=== PATIENT | female | born 1945 | race Caucasian/White ===

== ENCOUNTER → 2017-03-11 | Outpatient (CLI) | payer MEDICARE ==
[~2017-03-11] MED LIST: ACET500C PO; CALC600T7 PO; COLA100C5 PO; DIOV80TA2 PO; ECOT81TA5 PO; FOLI1TAB4 PO; HYDR-3713 PO; LIPI10TA PO; LUTE20CA PO; METO50TA7 PO; MOBI15TA PO; PRED5CON PO; PRIL20CA9 PO; TRAM50TA2 PO; TYLE325T5 PO; [UNRECOGNIZED DRUG - CODE] SL
[2017-03-11 17:50] LABS: BASO % 0.4 % (0.0-1.0); EOS % 0.5 % (0.0-3.0); IMMATURE GRANULOCYTE % 0.4 % (0-0); LYMPH # 0.8 10^3/uL (1.5-4.5); LYMPH % 10.5 % (24.0-44.0); MEAN CORPUSCULAR VOLUME 93.7 fl (80.0-96.0); MONO # 0.8 10^3/uL (0.0-0.8); NEUTROPHILS # 5.9 10^3/uL (1.8-7.7); NEUTROPHILS % 77.2 % (36.0-66.0); PLATELET COUNT, AUTOMATED 333 10^3/uL (150-450); RED CELL DISTRIBUTION WIDTH 14.7 % (11.5-14.5); WHITE BLOOD COUNT 7.6 10^3/uL (4.0-10.0)
[2017-03-11 17:52] LABS: ADD MORPHOLOGY? NO
[2017-03-11 18:08] LABS: ANION GAP 6 MEQ/L (8-16); BLOOD UREA NITROGEN 19 MG/DL (7-18); CALCIUM LEVEL 9.3 MG/DL (8.8-10.2); CARBON DIOXIDE LEVEL 29 MEQ/L (21-32); CHLORIDE LEVEL 104 MEQ/L (98-107); CREATININE FOR GFR 0.95 MG/DL (0.55-1.02); GLOMERULAR FILTRATION RATE > 60.0 (>39); GLUCOSE, FASTING 106 MG/DL (83-110); POTASSIUM SERUM 4.4 MEQ/L (3.5-5.1); SODIUM LEVEL 139 MEQ/L (136-145)
== END ==
LOC: M WUC 16:35
PROVIDERS: ATTEND Internal Medicine Cardiovascular Disease
DX: E78.5 Hyperlipidemia, unspecified (principal); I10 Essential (primary) hypertension; I35.8 Other nonrheumatic aortic valve disorders

== ENCOUNTER → 2017-04-28 | Outpatient (REF) | payer MEDICARE ==
[2017-04-28 16:38] LABS: EOSINOPHILS 1 % (0-5)
== END ==
LOC: M LAB REF 15:24
PROVIDERS: ATTEND Internal Medicine
DX: I47.1 Supraventricular tachycardia (principal); M06.9 Rheumatoid arthritis, unspecified; Z79.899 Other long term (current) drug therapy

== ENCOUNTER → 2017-05-20 | Outpatient (CLI) | payer MEDICARE ==
--- NOTE | 2017-05-20 10:21 | REPMRS ---
Patient History The patient states she had a clinical breast exam in 05/01 Patient is postmenopausal. Family history of breast cancer in paternal aunt at age 50 or over. 4 benign excisional biopsies of both breasts. Digital Woman Screen Mammo: May 20, 2017 - Exam #: [id number] Bilateral CC and MLO view(s) were taken. Technologist: Jeannie Burgess, Technologist Prior study comparison: 2009, digital bilateral screening mammo performed at [facility]. FINDINGS: There are scattered fibroglandular densities. There has been no change in the appearance of the mammogram from the prior studies. There is a mild amount of residual fibroglandular tissue which is fairly symmetric. There is no interval development of dominant mass, architectural distortion, or clustered microcalcification suggestive of malignancy. Coarsely calcified nodules, one in each breast as benign finding. The numerous bilateral nodules on prior study are all resolved or smaller. There are benign arterial calcifications noted. Scattered lymph nodes are seen in the axilla. No significant changes when compared with prior studies. ASSESSMENT: BI-RADS/ACR category 2 mammogram. Benign finding(s). Recommendation Routine screening mammogram in 1 year (for women over age 40). This mammogram was interpreted with the aid of an FDA-approved computer-aided dectection system. A. Negative x-ray reports should not delay biopsy if a dominant or clinically suspicious mass is present. B. Four to eight percent of cancers are not identified by mammography. C. Adenosis and dense breast may obscure an underlying neoplasm. Electronically Signed By: Reyes Lutz MD 05/20/17 [id number]
== END ==
LOC: M WHC 09:35
PROVIDERS: ATTEND Internal Medicine
DX: Z12.31 Encounter for screening mammogram for malignant neoplasm of breast (principal)

== ENCOUNTER 2017-11-08 18:50 | Emergency (ER) | payer MEDICARE ==
[2017-11-08] MEDS ORDERED: ASPIRIN 81 MG CHEW TABLET As Ordered ×2 (19:19)
[2017-11-08] MEDS ORDERED: NITROGLYCERIN 0.4 MG SUBL TABLET As Ordered ×2 (19:19)
[2017-11-08] MEDS ORDERED: ISOVUE-370 76% 100ML VIAL (Q9967) As Ordered ×2 (19:23)
[2017-11-08 19:52] LABS: CPK CREATINE PHOSPHOKINASE 142 U/L (26-192)
[2017-11-08 19:53] LABS: CK-MB VALUE MASS 8.8 NG/ML (<3.6); MB/CK RELATIVE INDEX 6.19 (< OR =4)
[2017-11-08 20:13] LABS: INR 0.96; PROTHROMBIN TIME 12.9 SECONDS (12.4-14.5)
[2017-11-08 20:14] LABS: PARTIAL THROMBOPLASTIN TIME 33.7 SECONDS (26.8-37.9)
[2017-11-08 20:15] LABS: TROPONIN I 4.56 NG/ML (< 0.10)
[2017-11-08] MEDS: HEPARIN DRIP 25,000 UNITS in APPROPRIATE DILUENT 1 EA IV (20:45)
[2017-11-08] MEDS: HEPARIN SOD (PORCINE) 5000 UNITS/ML VIAL IV ×2 (20:45)
== END 2017-11-08 21:17 | disposition short-term general hospital (02) ==
LOC: M ED 18:50
DX: I21.4 Non-ST elevation (NSTEMI) myocardial infarction (principal); I10 Essential (primary) hypertension; Z82.49 Family history of ischemic heart disease and other diseases of the circulatory system; Z79.899 Other long term (current) drug therapy; Z79.82 Long term (current) use of aspirin; Z88.0 Allergy status to penicillin; Z88.5 Allergy status to narcotic agent; Z88.8 Allergy status to other drugs, medicaments and biological substances
CPT/HCPCS: Q9967

== ENCOUNTER → 2017-11-08 | Outpatient (CLI) | payer MEDICARE ==
[~2017-11-08] MED LIST changes: -ACET500C PO; +ASPIRIN 81 MG CHEW TABLET PO; -CALC600T7 PO; -COLA100C5 PO; -DIOV80TA2 PO; -ECOT81TA5 PO; -FOLI1TAB4 PO; -HYDR-3713 PO; -LIPI10TA PO; -LUTE20CA PO; -METO50TA7 PO; -MOBI15TA PO; +NITROGLYCERIN 0.4 MG SUBL TABLET SL; -PRED5CON PO; -PRIL20CA9 PO; -TRAM50TA2 PO; -TYLE325T5 PO; -[UNRECOGNIZED DRUG - CODE] SL
[2017-11-08 17:27] LABS: BASO # 0.1 10^3/uL (0.0-0.2); BASO % 0.5 % (0.0-1.0); EOS # 0.1 10^3/uL (0.0-0.50); HEMATOCRIT 37.5 % (36.0-47.0); HEMOGLOBIN 11.7 g/dl (12.0-15.5); IMMATURE GRANULOCYTE % 0.4 % (0-3.0); LYMPH # 0.6 10^3/uL (1.5-4.5); MEAN CORPUSCULAR HEMOGLOBIN 30.2 pg (27.0-33.0); MEAN CORPUSCULAR HGB CONC 31.2 g/dl (32.0-36.5); MEAN CORPUSCULAR VOLUME 96.9 fl (80.0-96.0); MONO % 9.4 % (0.0-5.0); NEUTROPHILS # 8.8 10^3/uL (1.8-7.7); NEUTROPHILS % 82.7 % (36.0-66.0); PLATELET COUNT, AUTOMATED 375 10^3/uL (150-450); RED BLOOD COUNT 3.87 10^6/uL (4.00-5.40); RED CELL DISTRIBUTION WIDTH 14.3 % (11.5-14.5); WHITE BLOOD COUNT 10.7 10^3/uL (4.0-10.0)
[2017-11-08 17:32] LABS: ALBUMIN 3.6 GM/DL (3.2-5.2); ALBUMIN/GLOBULIN RATIO 0.97 (1.00-1.93); ALKALINE PHOSPHATASE 105 U/L (45-117); ALT/SGPT 28 U/L (12-78); ANION GAP 9 MEQ/L (8-16); AST/SGOT 47 U/L (7-37); BILIRUBIN,TOTAL 0.3 MG/DL (0.2-1.0); BLOOD UREA NITROGEN 36 MG/DL (7-18); CALCIUM LEVEL 9.6 MG/DL (8.8-10.2); CARBON DIOXIDE LEVEL 29 MEQ/L (21-32); CHLORIDE LEVEL 102 MEQ/L (98-107); CK-MB VALUE MASS 14.7 NG/ML (<3.6); CPK CREATINE PHOSPHOKINASE 224 U/L (26-192); CREATININE FOR GFR 0.94 MG/DL (0.55-1.30); GLOMERULAR FILTRATION RATE > 60.0 (>39); GLUCOSE, FASTING 109 MG/DL (70-100); MB/CK RELATIVE INDEX 6.56 (< OR =4); POTASSIUM SERUM 4.2 MEQ/L (3.5-5.1); SODIUM LEVEL 140 MEQ/L (136-145); TOTAL PROTEIN 7.3 GM/DL (6.4-8.2)
[2017-11-08 17:42] LABS: TROPONIN I 3.97 NG/ML (< 0.10)
== END ==
LOC: M WUC 11:02
DX: R07.9 Chest pain, unspecified (principal)
CPT/HCPCS: 82550

== ENCOUNTER → 2017-12-28 | Outpatient (REF) | payer MEDICARE ==
[2017-12-28 19:07] LABS: FERRITIN 30 NG/ML (8-252); IRON (FE) 32 UG/DL (50-170); PERCENT SATURATION 9.2 % (13.2-45.0); TOTAL IRON BINDING CAPACITY 346 UG/DL (250-450)
[2017-12-28 19:12] LABS: FOLATE > 24.0 NG/ML; VITAMIN B12 LEVEL 688 PG/ML
== END ==
LOC: M LAB REF 18:03
DX: D64.9 Anemia, unspecified (principal); D72.9 Disorder of white blood cells, unspecified
CPT/HCPCS: 82746

== ENCOUNTER → 2017-12-28 | Outpatient (REF) | payer MEDICARE ==
[2017-12-28 14:35] LABS: BANDS 2 % (< 11); EOSINOPHILS 1 % (0-5); LYMPHOCYTES 11 % (16-52); MONOCYTES 9 % (0-8); NEUTROPHILS 77 % (35-75)
[2017-12-28 14:36] LABS: PLATELET ESTIMATE NORMAL (NORMAL)
== END ==
LOC: M LAB REF 13:37
DX: D72.9 Disorder of white blood cells, unspecified (principal)

== ENCOUNTER 2018-01-07 13:42 | Emergency (ER) | payer MEDICARE ==
[2018-01-07] MEDS: oxyCODONE 5MG TAB PO (15:12)
[2018-01-07 15:20] LABS: BASO % 0.2 % (0.0-1.0); EOS % 0.4 % (0.0-3.0); HEMATOCRIT 33.8 % (36.0-47.0); HEMOGLOBIN 10.8 g/dl (12.0-15.5); IMMATURE GRANULOCYTE % 0.4 % (0-3.0); LYMPH # 0.5 10^3/uL (1.5-4.5); LYMPH % 6.2 % (24.0-44.0); MEAN CORPUSCULAR HEMOGLOBIN 29.4 pg (27.0-33.0); MEAN CORPUSCULAR VOLUME 92.1 fl (80.0-96.0); MONO # 0.8 10^3/uL (0.0-0.8); MONO % 9.9 % (0.0-5.0); NEUTROPHILS # 6.9 10^3/uL (1.8-7.7); NEUTROPHILS % 82.9 % (36.0-66.0); PLATELET COUNT, AUTOMATED 349 10^3/uL (150-450); RED BLOOD COUNT 3.67 10^6/uL (4.00-5.40); WHITE BLOOD COUNT 8.3 10^3/uL (4.0-10.0)
[2018-01-07 15:39] LABS: INR 2.56
[2018-01-07 15:40] LABS: PARTIAL THROMBOPLASTIN TIME 54.3 SECONDS (25.4-37.6)
[2018-01-07 16:39] LABS: ALBUMIN 3.3 GM/DL (3.2-5.2); ALKALINE PHOSPHATASE 88 U/L (45-117); ALT/SGPT 19 U/L (12-78); AST/SGOT 17 U/L (7-37); BILIRUBIN,DIRECT < 0.1 MG/DL (0.0-0.2); BILIRUBIN,TOTAL 0.2 MG/DL (0.2-1.0); BLOOD UREA NITROGEN 32 MG/DL (7-18); CARBON DIOXIDE LEVEL 25 MEQ/L (21-32); CHLORIDE LEVEL 106 MEQ/L (98-107); CPK CREATINE PHOSPHOKINASE 64 U/L (26-192); CREATININE FOR GFR 1.11 MG/DL (0.55-1.30); GLUCOSE, FASTING 113 MG/DL (70-100); POTASSIUM SERUM 3.6 MEQ/L (3.5-5.1); SODIUM LEVEL 140 MEQ/L (136-145); TOTAL PROTEIN 6.8 GM/DL (6.4-8.2); TROPONIN I < 0.02 NG/ML (< 0.10)
[2018-01-07 16:45] LABS: CK-MB VALUE MASS 1.1 NG/ML (<3.6); MB/CK RELATIVE INDEX 1.71 (< OR =4); NT-PRO BNP 678 PG/ML (<125)
[2018-01-07 16:52] LABS: ANION GAP 9 MEQ/L (8-16)
[2018-01-07 16:53] LABS: ALBUMIN/GLOBULIN RATIO 0.94 (1.00-1.93)
[2018-01-07] MEDS: predniSONE 5 MG TAB PO (17:45)
== END 2018-01-07 17:52 | disposition home or self-care (01) ==
LOC: M ED 13:42
DX: M71.22 Synovial cyst of popliteal space [Baker], left knee (principal); I10 Essential (primary) hypertension; M06.9 Rheumatoid arthritis, unspecified; K58.9 Irritable bowel syndrome, unspecified; Z98.890 Other specified postprocedural states; Z87.891 Personal history of nicotine dependence; Z79.899 Other long term (current) drug therapy; Z79.01 Long term (current) use of anticoagulants; Z79.52 Long term (current) use of systemic steroids; Z88.1 Allergy status to other antibiotic agents; Z88.5 Allergy status to narcotic agent; Z88.8 Allergy status to other drugs, medicaments and biological substances; Z88.0 Allergy status to penicillin
CPT/HCPCS: 93971

== ENCOUNTER → 2018-01-18 | Outpatient (REF) | payer MEDICARE ==
[2018-01-18 20:38] LABS: ATYPICAL LYMPH 1 % (0-5); EOSINOPHILS 1 % (0-5); LYMPHOCYTES 3 % (16-52); MONOCYTES 8 % (0-8); NEUTROPHILS 87 % (35-75)
[2018-01-18 20:39] LABS: PLATELET ESTIMATE NORMAL (NORMAL)
== END ==
LOC: M LAB REF 17:07
DX: D72.9 Disorder of white blood cells, unspecified (principal)
CPT/HCPCS: 85007

== ENCOUNTER 2018-03-02 07:45 | Day surgery (SDC) | payer MEDICARE ==
[~2018-03-02 07:45] MED LIST changes: -ASPIRIN 81 MG CHEW TABLET PO; +LIDOCAINE 2% INJ 100 MG/5 ML SDV (FOR ANES.) As Ordered; -NITROGLYCERIN 0.4 MG SUBL TABLET SL; +PROPOFOL 200 MG/20 ML VIAL As Ordered; +fentaNYL 100 MCG/2 ML INJECTION (J3010) As Ordered
[2018-03-02] MEDS: NS 1,000 ML IV (08:00)
[2018-03-02] MEDS ORDERED: ePHEDrine SULFATE 25 MG/5 ML(5MG/ML) SYRINGE As Ordered (09:00)
== END 2018-03-02 10:10 | disposition home or self-care (01) ==
LOC: M OPP 07:45
DX: R19.5 Other fecal abnormalities (principal); K57.30 Diverticulosis of large intestine without perforation or abscess without bleeding; K64.8 Other hemorrhoids; D62 Acute posthemorrhagic anemia; K29.70 Gastritis, unspecified, without bleeding; I35.9 Nonrheumatic aortic valve disorder, unspecified; Z95.2 Presence of prosthetic heart valve; R07.89 Other chest pain; R06.02 Shortness of breath; I10 Essential (primary) hypertension; E78.5 Hyperlipidemia, unspecified; K57.32 Diverticulitis of large intestine without perforation or abscess without bleeding; K92.2 Gastrointestinal hemorrhage, unspecified; K58.9 Irritable bowel syndrome, unspecified; K21.9 Gastro-esophageal reflux disease without esophagitis; R12 Heartburn; M19.90 Unspecified osteoarthritis, unspecified site; M81.0 Age-related osteoporosis without current pathological fracture; L57.0 Actinic keratosis; R32 Unspecified urinary incontinence; Z96.643 Presence of artificial hip joint, bilateral; Z96.651 Presence of right artificial knee joint; Z88.8 Allergy status to other drugs, medicaments and biological substances; Z88.5 Allergy status to narcotic agent; Z88.1 Allergy status to other antibiotic agents; Z88.0 Allergy status to penicillin; Z79.82 Long term (current) use of aspirin; Z79.899 Other long term (current) drug therapy; Z79.01 Long term (current) use of anticoagulants; Z80.3 Family history of malignant neoplasm of breast
CPT/HCPCS: 45378

== ENCOUNTER → 2018-11-04 | Outpatient (REF) | payer MEDICARE ==
[~2018-11-04] MED LIST changes: +ACET-683 PO; +ACET500C PO; +ASPI81TA26 PO; +CALC600T7 PO; +CLOP75TA2 PO; +COLA100C5 PO; +COUM1TAB19 PO; +DILT240C82 PO; +DIOV80TA2 PO; +ECOT81TA5 PO; +FEOS200T2 PO; +FERR325T3 PO; +FOLI1TAB11 PO; +FOLI800C PO; +GLYC1TAB18 PO; +HYDR-3713 PO; +HYDR25TAB PO; +LEFL1TAB4 PO; -LIDOCAINE 2% INJ 100 MG/5 ML SDV (FOR ANES.) As Ordered; +LIPI10TA PO; +LOSA50TA88 PO; +LUTE20CA PO; +METO50TA7 PO; +MIRA3350 PO; +MOBI15TA PO; +MULTCAP11 PO; +OMEG12004 PO; +OMEP40CA2 PO; +PRED5CON PO; +PRIL20CA9 PO; -PROPOFOL 200 MG/20 ML VIAL As Ordered; +REFR0.5D8 OP; +TOPR50TA PO; +TRAM50TA2 PO; +TYLE325T5 PO; +TYLE650T35 PO; +VICO5TAB17 PO; +[UNRECOGNIZED DRUG - CODE] SL; -fentaNYL 100 MCG/2 ML INJECTION (J3010) As Ordered
== END ==
LOC: M LAB REF 13:12
PROVIDERS: ATTEND Internal Medicine
DX: N39.0 Urinary tract infection, site not specified (principal)

== ENCOUNTER → 2018-12-14 | Outpatient (CLI) | payer MEDICARE ==
--- NOTE | 2018-12-14 11:38 | REPMRS ---
Patient History The patient states she had a clinical breast exam in 10/2018. Patient is postmenopausal. Family history of breast cancer at age 50 or over in paternal aunt. 4 benign excisional biopsies of both breasts. 3D TOMOSYNTHESIS WAS PERFORMED. [facility] lifetime risk for breast cancer is 3.3%. Digital Woman Screen Mammo: December 14, 2018 - Exam #: [id number] Bilateral CC and MLO view(s) were taken. Technologist: Jeannie Burgess, Technologist Prior study comparison: May 20, 2017, digital woman screen mammo performed at [facility]. 2009, digital bilateral screening mammo performed at [facility]. FINDINGS: There are scattered fibroglandular densities. There has been no change in the appearance of the mammogram from the prior studies. There is a mild amount of residual fibroglandular tissue which is fairly symmetric. There is no interval development of dominant mass, architectural distortion, or clustered microcalcification suggestive of malignancy. Large coarse benign appearing calcifications are present. Assessment: BI-RADS/ACR category 1 mammogram. Negative Mammogram. Recommendation Routine screening mammogram in 1 year (for women over age 40). This mammogram was interpreted with the aid of an FDA-approved computer-aided dectection system. Electronically Signed By: Raphael Woods MD 12/14/18 [id number]
== END ==
LOC: M WHC 09:47
PROVIDERS: ATTEND Internal Medicine
DX: Z12.31 Encounter for screening mammogram for malignant neoplasm of breast (principal); M81.0 Age-related osteoporosis without current pathological fracture; Z80.3 Family history of malignant neoplasm of breast

== ENCOUNTER → 2019-01-20 | Outpatient (REF) | payer MEDICARE ==
[2019-01-21 08:50] LABS: LDL DIRECT 166 mg/dL (0-99)
== END ==
LOC: M LAB REF 10:56
PROVIDERS: ATTEND Internal Medicine
DX: E78.00 Pure hypercholesterolemia, unspecified (principal)

== ENCOUNTER → 2019-03-02 | Outpatient (CLI) | payer MEDICARE ==
--- NOTE | 2019-03-02 16:28 | REP ---
Left ribs four views : There is no left rib fracture or other rib abnormality. 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 PA chest single view: Comparison is the PA and lateral chest dated 03/02/2007. There is no pneumothorax, hemothorax or pulmonary contusion. The cardiac size is normal. The tabatha, mediastinum, and skeletal structures are unremarkable. TVAC is again noted, not present previously. Electronically Signed by Raphael Campos MD 03/02/2019 04:19 P
== END ==
LOC: M RAD 12:16
PROVIDERS: ATTEND Internal Medicine Cardiovascular Disease
DX: R07.81 Pleurodynia (principal); Z95.2 Presence of prosthetic heart valve

== ENCOUNTER → 2020-12-31 | Outpatient (REF) | payer MEDICARE ==
[~2020-12-31] MED LIST changes: +ACET650T61 PO; +CALC-212 PO; -CALC600T7 PO; +HYDR-3490 PO; -HYDR25TAB PO; -OMEP40CA2 PO; +OMEP40CA4 PO; -TYLE650T35 PO
[2021-01-01 13:58] LABS: PERCENT SATURATION 24.5 % (13.2-45.0)
== END ==
LOC: M LAB REF 12:10
PROVIDERS: ATTEND Internal Medicine
DX: D50.9 Iron deficiency anemia, unspecified (principal)

== ENCOUNTER → 2021-11-21 | Outpatient (REF) | payer MEDICARE ==
[~2021-11-21] MED LIST changes: +LOSA50TA28 PO; -LOSA50TA88 PO
[2021-11-21 11:16] LABS: INR 3.75; PROTHROMBIN TIME 37.3 SECONDS (12.7-14.5)
== END ==
LOC: M LAB REF 10:48
PROVIDERS: ATTEND Internal Medicine
DX: I48.91 Unspecified atrial fibrillation (principal); Z79.01 Long term (current) use of anticoagulants

== ENCOUNTER → 2023-11-24 | Outpatient (CLI) | payer MEDICARE ==
[~2023-11-24] MED LIST changes: -LEFL1TAB4 PO; +LEFL20TA15 PO
== END ==
LOC: M PLALAB 15:40
PROVIDERS: ATTEND Nurse Practitioner Acute Care
DX: I35.9 Nonrheumatic aortic valve disorder, unspecified (principal); I48.0 Paroxysmal atrial fibrillation

== ENCOUNTER 2023-11-30 12:59 | Inpatient (IN) | payer MEDICARE ==
[~2023-11-30] VITALS: Ht 154.9 cm; Wt 55.3 kg
[2023-11-30 13:54] LABS: BASO % 0.5 % (0.0-1.0); EOS % 0.1 % (0.0-3.0); HEMATOCRIT 34.4 % (36.0-47.0); HEMOGLOBIN 11.5 g/dl (12.0-15.5); LYMPH # 0.4 10^3/uL (1.5-5.0); LYMPH % 4.2 % (24.0-44.0); MEAN CORPUSCULAR HEMOGLOBIN 31.8 pg (27.0-33.0); MEAN CORPUSCULAR HGB CONC 33.4 g/dl (32.0-36.5); MONO # 0.5 10^3/uL (0.0-0.8); MONO % 6.3 % (2.0-8.0); NEUTROPHILS # 7.5 10^3/uL (1.5-8.5); NEUTROPHILS % 88.7 % (36.0-66.0); PLATELET COUNT, AUTOMATED 359 10^3/uL (150-450); RED BLOOD COUNT 3.62 10^6/uL (4.00-5.40); WHITE BLOOD COUNT 8.4 10^3/uL (4.0-10.0)
[2023-11-30 14:06] LABS: INR 2.07; PROTHROMBIN TIME 22.5 SECONDS (12.5-14.5)
[2023-11-30 14:13] LABS: CK-MB VALUE MASS 1.8 NG/ML (<3.6)
[2023-11-30 14:16] LABS: BILIRUBIN,DIRECT 0.2 MG/DL (<0.4); BILIRUBIN,TOTAL 0.7 MG/DL (0.3-1.2); CALCIUM LEVEL 9.8 MG/DL (8.3-10.6); CREATININE FOR GFR 1.49 MG/DL (0.55-1.30); GLOMERULAR FILTRATION RATE 35.8 (>32); MB/CK RELATIVE INDEX 4.61 (< OR =4); POTASSIUM SERUM 3.9 MMOL/L (3.5-5.1)
[2023-11-30 14:17] LABS: THYROID STIMULATING HORMONE 1.55 uIU/ML (0.55-4.78)
[2023-11-30 14:18] LABS: FREE T4 1.49 NG/DL (0.89-1.76)
[2023-11-30 15:42] LABS: CK-MB VALUE MASS 1.8 NG/ML (<3.6)
[2023-11-30 15:44] LABS: MB/CK RELATIVE INDEX 5.29 (< OR =4)
[2023-11-30] MEDS: FUROSEMIDE 40MG/4ML VIAL IV ONE (17:16)
[2023-11-30] MEDS: **hydrALAZINE** 50 MG TAB PO ONE (18:27)
[2023-11-30] MEDS ORDERED: ACET-897 PO (18:46)
[2023-11-30] MEDS ORDERED: FERR324T12 PO (18:46)
[2023-11-30] MEDS ORDERED: ETAN50SY SC (18:46)
[2023-11-30] MEDS ORDERED: HYDR25TA87 PO (18:46)
[2023-11-30] MEDS ORDERED: WARF-18 PO ×2 (18:53)
[2023-11-30] MEDS ORDERED: THERTAB19 PO (18:53)
[2023-11-30] MEDS ORDERED: NITR0.4S14 SL (18:53)
[2023-11-30] MEDS ORDERED: REPA140I SC (18:56)
[2023-11-30] MEDS ORDERED: PRED5TA PO (18:56)
[2023-11-30] MEDS ORDERED: TRAM50TA2 PO (18:56)
[2023-11-30] MEDS ORDERED: AMLO1TAB25 PO (19:00)
[2023-11-30] MEDS ORDERED: HOME MED LIST COMPLETE! XX SCH (19:05)
[2023-11-30] MEDS ORDERED: **hydrALAZINE HCL** 25 MG TAB PO PRN (20:20)
[2023-11-30] MEDS: **hydrALAZINE** 50 MG TAB PO SCH (21:00)
[2023-11-30] MEDS: DOXYCYCLINE HYCLATE 100MG TABLET PO SCH (21:21)
[2023-11-30] MEDS: ACETAMINOPHEN 500 MG TAB PO ONE (21:21)
[2023-11-30] MEDS: WARFARIN SOD 5MG TAB PO SCH (21:21)
[2023-12-01] MEDS: ASPIRIN 81MG CHEW TABLET PO ONE (01:55)
[2023-12-01 06:07] LABS: HEMATOCRIT 31.2 % (36.0-47.0); HEMOGLOBIN 10.4 g/dl (12.0-15.5); MEAN CORPUSCULAR HEMOGLOBIN 31.8 pg (27.0-33.0); MEAN CORPUSCULAR HGB CONC 33.3 g/dl (32.0-36.5); MEAN CORPUSCULAR VOLUME 95.4 fl (80.0-96.0); PLATELET COUNT, AUTOMATED 290 10^3/uL (150-450); RED BLOOD COUNT 3.27 10^6/uL (4.00-5.40); WHITE BLOOD COUNT 6.3 10^3/uL (4.0-10.0)
[2023-12-01 06:19] LABS: INR 1.99; PROTHROMBIN TIME 21.9 SECONDS (12.5-14.5)
[2023-12-01 06:29] LABS: ALBUMIN 3.2 G/DL (3.2-5.2); BILIRUBIN,TOTAL 0.5 MG/DL (0.3-1.2); CREATININE FOR GFR 1.45 MG/DL (0.55-1.30); POTASSIUM SERUM 3.9 MMOL/L (3.5-5.1); TOTAL PROTEIN 5.9 G/DL (5.7-8.2)
[2023-12-01 08:13] LABS: C REACTIVE PROTEIN QUANTITATIV 1.3 MG/DL (<1.0)
[2023-12-01 08:27] LABS: PROCALCITONIN 0.09 ng/ml
[2023-12-01] MEDS: FUROSEMIDE 40MG/4ML VIAL IV SCH (08:48)
[2023-12-01] MEDS: predniSONE 5 MG TAB PO SCH (08:48)
[2023-12-01] MEDS: OMEPRAZOLE 20MG CAP PO SCH (08:48)
[2023-12-01] MEDS: dilTIAZem 120MG **CD** CAPSULE PO SCH (08:50)
[2023-12-01] MEDS ORDERED: MIRALAX *UNIT DOSE* 17GM PACKET PO SCH (09:00)
[2023-12-01] MEDS: MIRALAX *UNIT DOSE* 17GM PACKET PO SCH (09:00)
[2023-12-01] MEDS: ACETAMINOPHEN 500 MG TAB PO PRN (10:33)
[2023-12-01] MEDS: dilTIAZem 120MG **CD** CAPSULE PO ONE (11:57)
[2023-12-01 14:32] VITALS: BP 160/60; TEMP 97.3; O2SAT 93
[2023-12-01 15:46] VITALS: BP 136/60; TEMP 97.7; O2SAT 93
[2023-12-01] MEDS: WARFARIN SOD 2.5MG TAB PO SCH (16:09)
[2023-12-01] MEDS: traMADol 50 MG TAB PO PRN (16:10)
[2023-12-01 18:06] LABS: CALCIUM LEVEL 9.3 MG/DL (8.3-10.6); CREATININE FOR GFR 1.67 MG/DL (0.55-1.30); GLOMERULAR FILTRATION RATE 31.4 (>32); POTASSIUM SERUM 3.7 MMOL/L (3.5-5.1)
[2023-12-01] MEDS: POTASSIUM CHLORIDE 10MEQ SR TABLET PO ONE (18:45)
[2023-12-01 18:54] LABS: MAGNESIUM LEVEL 1.9 MG/DL (1.8-2.4)
[2023-12-01 20:09] VITALS: BP 156/63; TEMP 98.2; O2SAT 93
[2023-12-01 23:06] LABS: CREATININE FOR GFR 1.81 MG/DL (0.55-1.30); GLOMERULAR FILTRATION RATE 28.6 (>32); POTASSIUM SERUM 4.3 MMOL/L (3.5-5.1)
[2023-12-01] MEDS: traZODone 50 MG TAB PO PRN (23:20)
[2023-12-01 23:22] LABS: ABG BASE EXCESS 1.1 (-2.0-2.0); ABG O2 SATURATION 95.2 % (95.0-99.0); ABG PARTIAL PRESSURE CO2 32.4 mmHg (35.0-45.0); ABG PARTIAL PRESSURE O2 73.7 mmHg (75.0-100.0); ABG STANDARD HCO3 25.4 MMOL/L. (22.0-26.0); ABG pH (ARTERIAL) 7.488 UNITS (7.350-7.450)
[2023-12-01 23:33] LABS: BASO % 0.5 % (0.0-1.0); EOS # 0.1 10^3/uL (0.0-0.5); HEMATOCRIT 31.1 % (36.0-47.0); HEMOGLOBIN 10.5 g/dl (12.0-15.5); LYMPH # 0.7 10^3/uL (1.5-5.0); LYMPH % 7.7 % (24.0-44.0); MEAN CORPUSCULAR HGB CONC 33.8 g/dl (32.0-36.5); MEAN CORPUSCULAR VOLUME 94.8 fl (80.0-96.0); MONO # 1.2 10^3/uL (0.0-0.8); NEUTROPHILS # 6.5 10^3/uL (1.5-8.5); NEUTROPHILS % 76.7 % (36.0-66.0); PLATELET COUNT, AUTOMATED 336 10^3/uL (150-450); RED BLOOD COUNT 3.28 10^6/uL (4.00-5.40); WHITE BLOOD COUNT 8.4 10^3/uL (4.0-10.0)
[2023-12-02] VITALS (9 sets, daily range): BP systolic 140–155; BP diastolic 59–65; TEMP 97.2–98.4; O2SAT 90–93
[2023-12-02 06:36] LABS: BASO # 0.1 10^3/uL (0.0-0.2); BASO % 0.7 % (0.0-1.0); EOS # 0.1 10^3/uL (0.0-0.5); EOS % 1.9 % (0.0-3.0); HEMATOCRIT 30.1 % (36.0-47.0); HEMOGLOBIN 10.2 g/dl (12.0-15.5); LYMPH # 0.7 10^3/uL (1.5-5.0); LYMPH % 9.8 % (24.0-44.0); MEAN CORPUSCULAR HEMOGLOBIN 31.9 pg (27.0-33.0); MEAN CORPUSCULAR HGB CONC 33.9 g/dl (32.0-36.5); MEAN CORPUSCULAR VOLUME 94.1 fl (80.0-96.0); MONO # 1.1 10^3/uL (0.0-0.8); MONO % 15.6 % (2.0-8.0); NEUTROPHILS # 5.2 10^3/uL (1.5-8.5); NEUTROPHILS % 71.7 % (36.0-66.0); PLATELET COUNT, AUTOMATED 307 10^3/uL (150-450); WHITE BLOOD COUNT 7.2 10^3/uL (4.0-10.0)
[2023-12-02 06:46] LABS: CALCIUM LEVEL 9.1 MG/DL (8.3-10.6); CREATININE FOR GFR 1.81 MG/DL (0.55-1.30); GLOMERULAR FILTRATION RATE 28.6 (>32); MAGNESIUM LEVEL 1.9 MG/DL (1.8-2.4)
[2023-12-02 06:58] LABS: INR 2.86
[2023-12-02] MEDS: dilTIAZem 120MG **CD** CAPSULE PO SCH (08:45)
[2023-12-02] MEDS: ALPRAZolam 0.25 MG TAB PO PRN (08:49)
[2023-12-02] MEDS ORDERED: FUROSEMIDE 40MG/4ML VIAL IV SCH (09:00)
[2023-12-02 11:09] LABS: CALCIUM LEVEL 9.3 MG/DL (8.3-10.6); CREATININE FOR GFR 1.76 MG/DL (0.55-1.30); GLOMERULAR FILTRATION RATE 29.6 (>32); POTASSIUM SERUM 3.9 MMOL/L (3.5-5.1)
[2023-12-02] MEDS: FUROSEMIDE 40MG/4ML VIAL IV SCH (11:35)
[2023-12-02] MEDS: ATORVASTATIN 20 MG TAB PO SCH (11:35)
[2023-12-02] MEDS: ASPIRIN 81MG ENTERIC TABLET PO SCH (11:38)
[2023-12-02 11:59] LABS: APPEARANCE, URINE CLEAR (CLEAR); BACTERIA, URINE AUTO NEGATIVE (NEGATIVE); BILIRUBIN, URINE AUTO NEGATIVE (NEGATIVE); BLOOD, URINE BLOOD NEGATIVE (NEGATIVE); COLOR, URINE YELLOW (YELLOW); GLUCOSE, URINE (UA) AUTO NEGATIVE (NEGATIVE); KETONE, URINE AUTO NEGATIVE (NEGATIVE); LEUKOCYTE ESTERASE, URINE AUTO NEGATIVE (NEGATIVE); NITRITE, URINE AUTO NEGATIVE (NEGATIVE); PROTEIN, URINE AUTO 2+ mg/dL (NEGATIVE); RBC, URINE AUTO 4 /HPF (0-3); SPECIFIC GRAVITY URINE AUTO 1.012 (1.002-1.035); SQUAMOUS EPITHELIAL CELL UR AU 0 /HPF (0-6); UROBILINOGEN, URINE AUTO 0.2 mg/dL (0.0-2.0); WBC, URINE AUTO 0 /HPF (0-3)
[2023-12-02 17:16] LABS: CREATININE FOR GFR 1.76 MG/DL (0.55-1.30); GLOMERULAR FILTRATION RATE 29.6 (>32); POTASSIUM SERUM 4.7 MMOL/L (3.5-5.1)
[2023-12-02 23:27] LABS: CALCIUM LEVEL 8.8 MG/DL (8.3-10.6); CREATININE FOR GFR 1.85 MG/DL (0.55-1.30); GLOMERULAR FILTRATION RATE 27.9 (>32); POTASSIUM SERUM 4.2 MMOL/L (3.5-5.1)
[2023-12-03] VITALS (10 sets, daily range): BP systolic 144–156; BP diastolic 62–86; TEMP 97.2–98.1; O2SAT 89–93
[2023-12-03 06:12] LABS: BASO % 0.5 % (0.0-1.0); EOS # 0.2 10^3/uL (0.0-0.5); EOS % 1.9 % (0.0-3.0); HEMATOCRIT 30.9 % (36.0-47.0); HEMOGLOBIN 10.5 g/dl (12.0-15.5); LYMPH # 0.8 10^3/uL (1.5-5.0); LYMPH % 9.3 % (24.0-44.0); MEAN CORPUSCULAR HEMOGLOBIN 31.9 pg (27.0-33.0); MEAN CORPUSCULAR VOLUME 93.9 fl (80.0-96.0); MONO # 1.2 10^3/uL (0.0-0.8); MONO % 13.5 % (2.0-8.0); NEUTROPHILS # 6.5 10^3/uL (1.5-8.5); NEUTROPHILS % 74.6 % (36.0-66.0); PLATELET COUNT, AUTOMATED 334 10^3/uL (150-450); RED BLOOD COUNT 3.29 10^6/uL (4.00-5.40); WHITE BLOOD COUNT 8.7 10^3/uL (4.0-10.0)
[2023-12-03 06:27] LABS: INR 3.59; PROTHROMBIN TIME 34.5 SECONDS (12.5-14.5)
[2023-12-03] MEDS: FUROSEMIDE 100MG/10ML VIAL IV ONE (06:30)
[2023-12-03 06:32] LABS: CALCIUM LEVEL 9.3 MG/DL (8.3-10.6); CREATININE FOR GFR 1.86 MG/DL (0.55-1.30); GLOMERULAR FILTRATION RATE 27.8 (>32); MAGNESIUM LEVEL 2.1 MG/DL (1.8-2.4); POTASSIUM SERUM 4.1 MMOL/L (3.5-5.1)
[2023-12-03] MEDS: SENNA 8.6 MG TAB (SENOKOT) PO SCH (10:28)
[2023-12-03 11:04] LABS: CREATININE FOR GFR 1.82 MG/DL (0.55-1.30); GLOMERULAR FILTRATION RATE 28.5 (>32); POTASSIUM SERUM 4.5 MMOL/L (3.5-5.1)
[2023-12-03] MEDS: FUROSEMIDE 100MG/10ML VIAL IV SCH (16:32)
[2023-12-04] VITALS (7 sets, daily range): BP systolic 139–153; BP diastolic 62–93; TEMP 97–98.4; O2SAT 89–98
[2023-12-04 06:22] LABS: BASO # 0.1 10^3/uL (0.0-0.2); BASO % 0.6 % (0.0-1.0); EOS # 0.2 10^3/uL (0.0-0.5); EOS % 2.1 % (0.0-3.0); LYMPH # 0.8 10^3/uL (1.5-5.0); LYMPH % 9.8 % (24.0-44.0); MEAN CORPUSCULAR HEMOGLOBIN 31.6 pg (27.0-33.0); MEAN CORPUSCULAR HGB CONC 33.3 g/dl (32.0-36.5); MEAN CORPUSCULAR VOLUME 94.9 fl (80.0-96.0); MONO # 1.2 10^3/uL (0.0-0.8); MONO % 15.3 % (2.0-8.0); NEUTROPHILS # 5.6 10^3/uL (1.5-8.5); NEUTROPHILS % 72.1 % (36.0-66.0); PLATELET COUNT, AUTOMATED 310 10^3/uL (150-450); RED BLOOD COUNT 3.16 10^6/uL (4.00-5.40); WHITE BLOOD COUNT 7.7 10^3/uL (4.0-10.0)
[2023-12-04 06:37] LABS: MAGNESIUM LEVEL 2.2 MG/DL (1.8-2.4)
[2023-12-04 07:08] LABS: CALCIUM LEVEL 8.9 MG/DL (8.3-10.6); GLOMERULAR FILTRATION RATE 25.5 (>32); POTASSIUM SERUM 3.7 MMOL/L (3.5-5.1)
[2023-12-04 10:21] LABS: INR 3.55; PROTHROMBIN TIME 34.2 SECONDS (12.5-14.5)
[2023-12-04] MEDS: SPIRONOLACTONE 25 MG TAB PO SCH (17:32)
[2023-12-05] VITALS: BP_SYST 145; BP_DIAS 62; BP_DIAS 63; TEMP 97.2; O2SAT 91
[2023-12-05 04:00] VITALS: BP 145/63; TEMP 97.5; O2SAT 90
[2023-12-05 06:59] LABS: BASO % 0.5 % (0.0-1.0); EOS # 0.2 10^3/uL (0.0-0.5); EOS % 2.4 % (0.0-3.0); HEMATOCRIT 30.2 % (36.0-47.0); HEMOGLOBIN 10.1 g/dl (12.0-15.5); LYMPH # 0.7 10^3/uL (1.5-5.0); MEAN CORPUSCULAR HEMOGLOBIN 31.2 pg (27.0-33.0); MEAN CORPUSCULAR HGB CONC 33.4 g/dl (32.0-36.5); MEAN CORPUSCULAR VOLUME 93.2 fl (80.0-96.0); MONO % 12.5 % (2.0-8.0); NEUTROPHILS % 75.3 % (36.0-66.0); PLATELET COUNT, AUTOMATED 322 10^3/uL (150-450); RED BLOOD COUNT 3.24 10^6/uL (4.00-5.40)
[2023-12-05 07:07] LABS: INR 2.86; PROTHROMBIN TIME 28.9 SECONDS (12.5-14.5)
[2023-12-05 07:19] LABS: CALCIUM LEVEL 9.2 MG/DL (8.3-10.6); CREATININE FOR GFR 2.08 MG/DL (0.55-1.30); GLOMERULAR FILTRATION RATE 24.4 (>32); MAGNESIUM LEVEL 2.3 MG/DL (1.8-2.4); POTASSIUM SERUM 3.4 MMOL/L (3.5-5.1)
[2023-12-05 08:00] VITALS: BP 141/62; TEMP 97.5; O2SAT 94
[2023-12-05] MEDS ORDERED: KCL 10MEQ/100ML SWI (KRUN) 10 MEQ in IV 1 EA IV SCH (08:00)
[2023-12-05] MEDS: POTASSIUM CHLORIDE 10MEQ SR TABLET PO ONE (08:40)
[2023-12-05] MEDS: POTASSIUM CHLORIDE 10MEQ SR TABLET PO SCH (10:41)
[2023-12-05] MEDS: REPATHA 140 MG/ML XX SCH (11:51)
[2023-12-05 12:00] VITALS: BP 142/62; TEMP 97.5; O2SAT 91
[2023-12-05] MEDS: FUROSEMIDE injection 250 MG in D5W 225 ML IV SCH (13:20)
[2023-12-05 16:20] VITALS: BP 143/62; TEMP 97.9; O2SAT 91
[2023-12-05] MEDS: SPIRONOLACTONE 50 MG TAB PO SCH (16:59)
[2023-12-05 21:53] VITALS: BP 146/65; TEMP 97.5; O2SAT 93
[2023-12-06 00:49] VITALS: BP 134/54; TEMP 97.7; O2SAT 91
[2023-12-06 05:25] VITALS: BP 147/55; TEMP 97.7; O2SAT 91
[2023-12-06 06:40] LABS: BASO % 0.4 % (0.0-1.0); EOS # 0.2 10^3/uL (0.0-0.5); EOS % 1.6 % (0.0-3.0); HEMATOCRIT 29.3 % (36.0-47.0); HEMOGLOBIN 9.9 g/dl (12.0-15.5); LYMPH # 0.6 10^3/uL (1.5-5.0); LYMPH % 6.4 % (24.0-44.0); MEAN CORPUSCULAR HEMOGLOBIN 31.5 pg (27.0-33.0); MEAN CORPUSCULAR HGB CONC 33.8 g/dl (32.0-36.5); MEAN CORPUSCULAR VOLUME 93.3 fl (80.0-96.0); MONO # 1.2 10^3/uL (0.0-0.8); MONO % 12.3 % (2.0-8.0); NEUTROPHILS # 7.6 10^3/uL (1.5-8.5); NEUTROPHILS % 78.9 % (36.0-66.0); PLATELET COUNT, AUTOMATED 329 10^3/uL (150-450); RED BLOOD COUNT 3.14 10^6/uL (4.00-5.40); WHITE BLOOD COUNT 9.7 10^3/uL (4.0-10.0)
[2023-12-06 07:06] LABS: CALCIUM LEVEL 9.2 MG/DL (8.3-10.6); CREATININE FOR GFR 2.3 MG/DL (0.55-1.30); GLOMERULAR FILTRATION RATE 21.7 (>32); MAGNESIUM LEVEL 2.4 MG/DL (1.8-2.4); POTASSIUM SERUM 4.5 MMOL/L (3.5-5.1)
[2023-12-06 07:16] LABS: INR 2.36; PROTHROMBIN TIME 24.9 SECONDS (12.5-14.5)
[2023-12-06] MEDS: POTASSIUM CHLORIDE 10MEQ SR TABLET PO SCH ×2 (08:35→12:05)
[2023-12-06 10:00] VITALS: BP 148/57; TEMP 97.7; O2SAT 91
[2023-12-06] MEDS: metOLazone 5 MG TAB PO ONE (12:05)
[2023-12-06 16:00] VITALS: BP 161/70; TEMP 97.3; O2SAT 92
[2023-12-06 20:00] VITALS: BP_SYST 160; BP_SYST 175; BP_DIAS 68; BP_DIAS 99; TEMP 97.7; TEMP 97.9; O2SAT 91; O2SAT 92
[2023-12-07] VITALS (7 sets, daily range): BP systolic 145–158; BP diastolic 59–64; TEMP 97.2–97.9; O2SAT 91–93
[2023-12-07 06:06] LABS: BASO % 0.3 % (0.0-1.0); HEMATOCRIT 30.3 % (36.0-47.0); HEMOGLOBIN 10.1 g/dl (12.0-15.5); MEAN CORPUSCULAR HEMOGLOBIN 31.5 pg (27.0-33.0); MEAN CORPUSCULAR HGB CONC 33.3 g/dl (32.0-36.5); MEAN CORPUSCULAR VOLUME 94.4 fl (80.0-96.0); MONO % 12.8 % (2.0-8.0); NEUTROPHILS # 6.9 10^3/uL (1.5-8.5); NEUTROPHILS % 77.7 % (36.0-66.0); PLATELET COUNT, AUTOMATED 346 10^3/uL (150-450); RED BLOOD COUNT 3.21 10^6/uL (4.00-5.40); WHITE BLOOD COUNT 8.8 10^3/uL (4.0-10.0)
[2023-12-07 06:07] LABS: EOS # 0.1 10^3/uL (0.0-0.5); LYMPH # 0.7 10^3/uL (1.5-5.0); MONO # 1.1 10^3/uL (0.0-0.8)
[2023-12-07 06:17] LABS: INR 2.55; PROTHROMBIN TIME 26.5 SECONDS (12.5-14.5)
[2023-12-07 06:38] LABS: CALCIUM LEVEL 9.5 MG/DL (8.3-10.6); CREATININE FOR GFR 2.63 MG/DL (0.55-1.30); GLOMERULAR FILTRATION RATE 18.6 (>32); MAGNESIUM LEVEL 2.5 MG/DL (1.8-2.4); POTASSIUM SERUM 5.5 MMOL/L (3.5-5.1)
[2023-12-07] MEDS: metOLazone 5 MG TAB PO ONE (11:06)
[2023-12-07 13:54] LABS: CALCIUM LEVEL 9.6 MG/DL (8.3-10.6); CREATININE FOR GFR 2.69 MG/DL (0.55-1.30); GLOMERULAR FILTRATION RATE 18.1 (>32); POTASSIUM SERUM 5.2 MMOL/L (3.5-5.1)
[2023-12-08 03:10] VITALS: BP 158/59; TEMP 97.3; O2SAT 94
[2023-12-08 05:55] LABS: BASO % 0.2 % (0.0-1.0); EOS # 0.1 10^3/uL (0.0-0.5); EOS % 1.5 % (0.0-3.0); HEMATOCRIT 28.1 % (36.0-47.0); HEMOGLOBIN 9.5 g/dl (12.0-15.5); LYMPH # 0.7 10^3/uL (1.5-5.0); LYMPH % 8.5 % (24.0-44.0); MEAN CORPUSCULAR HEMOGLOBIN 31.9 pg (27.0-33.0); MEAN CORPUSCULAR HGB CONC 33.8 g/dl (32.0-36.5); MEAN CORPUSCULAR VOLUME 94.3 fl (80.0-96.0); MONO # 1.2 10^3/uL (0.0-0.8); MONO % 14.6 % (2.0-8.0); NEUTROPHILS # 6.4 10^3/uL (1.5-8.5); NEUTROPHILS % 74.8 % (36.0-66.0); PLATELET COUNT, AUTOMATED 313 10^3/uL (150-450); RED BLOOD COUNT 2.98 10^6/uL (4.00-5.40); WHITE BLOOD COUNT 8.5 10^3/uL (4.0-10.0)
[2023-12-08 06:10] LABS: INR 3.07; PROTHROMBIN TIME 30.5 SECONDS (12.5-14.5)
[2023-12-08 06:22] LABS: CALCIUM LEVEL 9.3 MG/DL (8.3-10.6); MAGNESIUM LEVEL 2.5 MG/DL (1.8-2.4); POTASSIUM SERUM 4.8 MMOL/L (3.5-5.1)
[2023-12-08 08:00] VITALS: BP 153/62; TEMP 97.7; O2SAT 93
[2023-12-08 12:00] VITALS: BP 107/53; TEMP 97.3; O2SAT 97
[2023-12-08] MEDS: TOLVAPTAN 7.5 MG HALF-TAB PO ONE (13:13)
[2023-12-08 16:00] VITALS: BP 151/64; TEMP 97.9; O2SAT 93
[2023-12-08 20:11] VITALS: BP 155/64; TEMP 97.9; O2SAT 92
[2023-12-09] VITALS: BP 136/54; TEMP 97.9; O2SAT 91
[2023-12-09 04:00] VITALS: BP 132/51; TEMP 97; O2SAT 94
[2023-12-09 06:09] LABS: INR 3.2; PROTHROMBIN TIME 31.6 SECONDS (12.5-14.5)
[2023-12-09 06:14] LABS: CALCIUM LEVEL 9.4 MG/DL (8.3-10.6); CREATININE FOR GFR 3.15 MG/DL (0.55-1.30); GLOMERULAR FILTRATION RATE 15.1 (>32)
[2023-12-09 08:00] VITALS: BP 146/55; TEMP 97; O2SAT 95
[2023-12-09 12:00] VITALS: BP 149/61; TEMP 97.5; O2SAT 96
[2023-12-09] MEDS: SODIUM CHLORIDE 3% IV ONE (12:51)
[2023-12-09 16:05] VITALS: BP 130/50; TEMP 97.9; O2SAT 92
[2023-12-09 20:09] VITALS: BP 160/60; TEMP 97.7; O2SAT 97
[2023-12-09] MEDS: NITROGLYCERIN 0.4MG SUBL TABLET SL PRN (20:18)
[2023-12-10 00:17] VITALS: BP 138/58; TEMP 98.1; O2SAT 96
[2023-12-10 03:58] VITALS: BP 140/57; TEMP 97.5; O2SAT 95
[2023-12-10 07:44] LABS: INR 2.93; PROTHROMBIN TIME 29.5 SECONDS (12.5-14.5)
[2023-12-10 07:56] LABS: CALCIUM LEVEL 8.8 MG/DL (8.3-10.6); CREATININE FOR GFR 2.84 MG/DL (0.55-1.30); POTASSIUM SERUM 4.1 MMOL/L (3.5-5.1)
[2023-12-10 08:00] VITALS: BP 142/55; TEMP 97.9; O2SAT 96
[2023-12-10 12:00] VITALS: BP 143/54; TEMP 97.2; O2SAT 97
[2023-12-10 16:00] VITALS: BP 134/52; TEMP 97.3; O2SAT 97
[2023-12-10 20:54] VITALS: BP 159/64; TEMP 97.7; O2SAT 96
[2023-12-11] VITALS (7 sets, daily range): BP systolic 124–142; BP diastolic 45–62; TEMP 97.1–98.2; O2SAT 92–96
[2023-12-11 06:51] LABS: CALCIUM LEVEL 8.7 MG/DL (8.3-10.6); CREATININE FOR GFR 2.67 MG/DL (0.55-1.30); GLOMERULAR FILTRATION RATE 18.3 (>32); POTASSIUM SERUM 4.3 MMOL/L (3.5-5.1)
[2023-12-11] MEDS: DARBEPOETIN 100MCG/0.5ML *NON-DIALYSIS* SYRINGE SC SCH (09:33)
[2023-12-11] MEDS: BUMETANIDE 1 MG TAB PO SCH (09:33)
[2023-12-11 10:43] LABS: INR 2.17; PROTHROMBIN TIME 23.4 SECONDS (12.5-14.5)
[2023-12-12] VITALS: BP 119/41; TEMP 97.9; O2SAT 95
[2023-12-12 04:00] VITALS: BP 132/44; TEMP 97; O2SAT 91
[2023-12-12 06:46] LABS: INR 1.99; PROTHROMBIN TIME 21.9 SECONDS (12.5-14.5)
[2023-12-12 07:45] VITALS: BP 138/61; TEMP 97.5; O2SAT 94
[2023-12-12 08:06] LABS: HEMATOCRIT 25.9 % (36.0-47.0); HEMOGLOBIN 8.8 g/dl (12.0-15.5); MEAN CORPUSCULAR HEMOGLOBIN 31.3 pg (27.0-33.0); MEAN CORPUSCULAR VOLUME 92.2 fl (80.0-96.0); PLATELET COUNT, AUTOMATED 296 10^3/uL (150-450); RED BLOOD COUNT 2.81 10^6/uL (4.00-5.40); WHITE BLOOD COUNT 7.5 10^3/uL (4.0-10.0)
[2023-12-12 08:12] LABS: CALCIUM LEVEL 8.8 MG/DL (8.3-10.6); CREATININE FOR GFR 2.57 MG/DL (0.55-1.30); GLOMERULAR FILTRATION RATE 19.1 (>32)
[2023-12-12] MEDS: BUMETANIDE 1 MG TAB PO SCH (10:03)
[2023-12-12 11:39] VITALS: BP 156/68; TEMP 97.6; O2SAT 97
[2023-12-12 15:30] VITALS: BP 143/57; TEMP 97.2; O2SAT 94
[2023-12-12] MEDS: WARFARIN SOD 5MG TAB PO SCH (16:50)
[2023-12-12 20:00] VITALS: BP 133/59; TEMP 97.9; O2SAT 95
[2023-12-13] VITALS: BP 133/53; TEMP 97.3; O2SAT 94
[2023-12-13 04:00] VITALS: BP 130/51; TEMP 97.7; O2SAT 96
[2023-12-13 05:59] LABS: HEMATOCRIT 26.3 % (36.0-47.0); HEMOGLOBIN 8.9 g/dl (12.0-15.5); MEAN CORPUSCULAR HEMOGLOBIN 31.2 pg (27.0-33.0); MEAN CORPUSCULAR HGB CONC 33.8 g/dl (32.0-36.5); MEAN CORPUSCULAR VOLUME 92.3 fl (80.0-96.0); PLATELET COUNT, AUTOMATED 305 10^3/uL (150-450); RED BLOOD COUNT 2.85 10^6/uL (4.00-5.40)
[2023-12-13 06:29] LABS: CALCIUM LEVEL 8.7 MG/DL (8.3-10.6); CREATININE FOR GFR 2.42 MG/DL (0.55-1.30); GLOMERULAR FILTRATION RATE 20.5 (>32); PHOSPHORUS LEVEL 4.5 MG/DL (2.4-5.1); POTASSIUM SERUM 3.4 MMOL/L (3.5-5.1)
[2023-12-13 06:44] LABS: INR 2.25; PROTHROMBIN TIME 24.1 SECONDS (12.5-14.5)
[2023-12-13 08:00] VITALS: BP 143/58; TEMP 98.1; O2SAT 96
[2023-12-13] MEDS: POTASSIUM CHLORIDE 10MEQ SR TABLET PO SCH (08:41)
[2023-12-13] MEDS: POTASSIUM CHLORIDE 10MEQ SR TABLET PO ONE (10:46)
[2023-12-13 12:00] VITALS: BP 133/49; TEMP 97.7; O2SAT 97
[2023-12-13 16:00] VITALS: BP 140/54; TEMP 97.9; O2SAT 94
[2023-12-13] MEDS: WARFARIN SOD 2.5MG TAB PO SCH (17:09)
[2023-12-13] MEDS ORDERED: SENOKOT S TAB PO PRN (18:35)
[2023-12-13] MEDS ORDERED: MIRALAX *UNIT DOSE* 17GM PACKET PO PRN (18:35)
[2023-12-13] MEDS: SENOKOT S TAB PO ONE (18:48)
[2023-12-13] MEDS: MIRALAX *UNIT DOSE* 17GM PACKET PO ONE (18:48)
[2023-12-13 20:41] VITALS: BP 131/47; TEMP 97.9; O2SAT 95
[2023-12-14 04:43] VITALS: BP 121/46; TEMP 97.9; O2SAT 96
[2023-12-14 06:15] LABS: HEMATOCRIT 28.3 % (36.0-47.0); HEMOGLOBIN 9.5 g/dl (12.0-15.5); MEAN CORPUSCULAR HGB CONC 33.6 g/dl (32.0-36.5); MEAN CORPUSCULAR VOLUME 92.5 fl (80.0-96.0); PLATELET COUNT, AUTOMATED 326 10^3/uL (150-450); RED BLOOD COUNT 3.06 10^6/uL (4.00-5.40); WHITE BLOOD COUNT 7.7 10^3/uL (4.0-10.0)
[2023-12-14 06:26] LABS: INR 2.16; PROTHROMBIN TIME 23.3 SECONDS (12.5-14.5)
[2023-12-14 06:47] LABS: CALCIUM LEVEL 8.9 MG/DL (8.3-10.6); CREATININE FOR GFR 2.39 MG/DL (0.55-1.30); GLOMERULAR FILTRATION RATE 20.8 (>32); POTASSIUM SERUM 3.8 MMOL/L (3.5-5.1)
[2023-12-14 08:00] VITALS: BP 139/59; TEMP 98.1; O2SAT 99
[2023-12-14] MEDS: BISACODYL 5MG TAB PO SCH (09:17)
[2023-12-14 12:00] VITALS: BP_SYST 124; BP_SYST 94; BP_DIAS 60; TEMP 97.7; O2SAT 97
[2023-12-14 16:00] VITALS: BP 105/55; TEMP 97.9; O2SAT 97
[2023-12-14] MEDS: WARFARIN SOD 5MG TAB PO SCH (16:11)
[2023-12-14 19:38] VITALS: BP 150/52; TEMP 97.7; O2SAT 94
[2023-12-15] VITALS: BP 145/49; TEMP 97.7; O2SAT 97
[2023-12-15 03:46] VITALS: BP 133/56; TEMP 97.7; O2SAT 98
[2023-12-15 06:56] LABS: INR 2.67; PROTHROMBIN TIME 27.5 SECONDS (12.5-14.5)
[2023-12-15 08:00] VITALS: BP 134/64; TEMP 97.5; O2SAT 98
[2023-12-15 11:22] LABS: CALCIUM LEVEL 8.8 MG/DL (8.3-10.6); CREATININE FOR GFR 2.41 MG/DL (0.55-1.30); GLOMERULAR FILTRATION RATE 20.6 (>32); MAGNESIUM LEVEL 2.3 MG/DL (1.8-2.4); POTASSIUM SERUM 4.2 MMOL/L (3.5-5.1)
[2023-12-15 12:00] VITALS: BP 141/65; TEMP 97.7; O2SAT 97
[2023-12-15] MEDS ORDERED: POTA10CA70 PO (14:11)
[2023-12-15] MEDS ORDERED: ATOR1TAB21 PO (14:11)
[2023-12-15] MEDS ORDERED: BUME2TAB3 PO (14:11)
[2023-12-15 16:00] VITALS: BP 159/51; TEMP 97.5; O2SAT 98
[2023-12-15 16:22] VITALS: BP 159/51
== END 2023-12-15 17:20 | disposition home health service (06) | DRG 291 ==
LOC: M ED 12:59 → M ED INP 20:15 → M MSPAV 12-01 14:33
PROVIDERS: ADMIT Preventive Medicine Undersea and Hyperbaric Medicine; ATTEND Student in an Organized Health Care Education/Training Program
DX: I13.0 Hypertensive heart and chronic kidney disease with heart failure and stage 1 through stage 4 chronic kidney disease, or unspecified chronic kidney disease (principal); I50.33 Acute on chronic diastolic (congestive) heart failure; I48.20 Chronic atrial fibrillation, unspecified; E87.3 Alkalosis; N17.9 Acute kidney failure, unspecified; E87.1 Hypo-osmolality and hyponatremia; I48.21 Permanent atrial fibrillation; N18.4 Chronic kidney disease, stage 4 (severe); E11.22 Type 2 diabetes mellitus with diabetic chronic kidney disease; M06.9 Rheumatoid arthritis, unspecified; D64.9 Anemia, unspecified; E78.5 Hyperlipidemia, unspecified; E87.5 Hyperkalemia; K21.9 Gastro-esophageal reflux disease without esophagitis; Z79.01 Long term (current) use of anticoagulants; Z88.0 Allergy status to penicillin; Z88.8 Allergy status to other drugs, medicaments and biological substances; Z88.5 Allergy status to narcotic agent; Z79.899 Other long term (current) drug therapy; M35.3 Polymyalgia rheumatica; Z79.52 Long term (current) use of systemic steroids; I35.0 Nonrheumatic aortic (valve) stenosis; F41.9 Anxiety disorder, unspecified

== ENCOUNTER → 2024-01-29 | Outpatient (CLI) | payer MEDICARE ==
[~2024-01-29] MED LIST changes: +ACET-897 PO; +AMLO1TAB25 PO; +ATOR1TAB21 PO; +BUME2TAB3 PO; +ETAN50SY SC; +FERR324T12 PO; +HYDR25TA87 PO; +NITR0.4S14 SL; +POTA10CA70 PO; +PRED5TA PO; +REPA140I SC; +THERTAB19 PO; +WARF-18 PO
[2024-01-29 15:16] LABS: CHOLESTEROL RISK RATIO 2.84 (<5); HDL CHOLESTEROL 77.3 MG/DL (>40); LDL CHOLESTEROL 122.9 MG/DL (<100); NON-HDL-C 142.7 MG/DL
== END ==
LOC: M PLALAB 09:38
PROVIDERS: ATTEND Nurse Practitioner Acute Care
DX: E78.5 Hyperlipidemia, unspecified (principal)

== ENCOUNTER → 2024-02-10 | Outpatient (CLI) | payer MEDICARE ==
[2024-02-10 12:10] LABS: ALBUMIN 3.6 G/DL (3.2-5.2); BILIRUBIN,TOTAL 0.6 MG/DL (0.3-1.2); CALCIUM LEVEL 9.9 MG/DL (8.3-10.6); CREATININE FOR GFR 1.9 MG/DL (0.55-1.30); GLOMERULAR FILTRATION RATE 27.1 (>32); POTASSIUM SERUM 4.3 MMOL/L (3.5-5.1); TOTAL PROTEIN 6.8 G/DL (5.7-8.2)
== END ==
LOC: M WUC 10:07
PROVIDERS: ATTEND Nurse Practitioner Acute Care
DX: I50.9 Heart failure, unspecified (principal)

== ENCOUNTER → 2024-02-17 | Outpatient (CLI) | payer MEDICARE ==
[2024-02-17 13:58] LABS: CALCIUM LEVEL 9.7 MG/DL (8.3-10.6); CREATININE FOR GFR 2.2 MG/DL (0.55-1.30); GLOMERULAR FILTRATION RATE 22.9 (>32)
== END ==
LOC: M WUC 09:42
PROVIDERS: ATTEND Nurse Practitioner Acute Care
DX: I50.9 Heart failure, unspecified (principal)

== ENCOUNTER → 2024-02-24 | Outpatient (CLI) | payer MEDICARE ==
[2024-02-24 18:07] LABS: ALBUMIN 3.9 G/DL (3.2-5.2); BILIRUBIN,TOTAL 0.4 MG/DL (0.3-1.2); CALCIUM LEVEL 9.5 MG/DL (8.3-10.6); CREATININE FOR GFR 2.24 MG/DL (0.55-1.30); GLOMERULAR FILTRATION RATE 22.4 (>32); POTASSIUM SERUM 4.6 MMOL/L (3.5-5.1)
== END ==
LOC: M WUC 10:53
PROVIDERS: ATTEND Nurse Practitioner Acute Care
DX: N18.9 Chronic kidney disease, unspecified (principal)

== ENCOUNTER → 2024-03-03 | Outpatient (REF) | payer MEDICARE ==
[2024-03-03 14:47] LABS: ALBUMIN 3.4 G/DL (3.2-5.2); BILIRUBIN,TOTAL 0.4 MG/DL (0.3-1.2); CALCIUM LEVEL 10.1 MG/DL (8.3-10.6); CREATININE FOR GFR 2.02 MG/DL (0.55-1.30); GLOMERULAR FILTRATION RATE 25.2 (>32); POTASSIUM SERUM 4.3 MMOL/L (3.5-5.1); TOTAL PROTEIN 6.9 G/DL (5.7-8.2)
== END ==
LOC: M LABWUC 13:00
PROVIDERS: ATTEND Nurse Practitioner Acute Care
DX: I50.9 Heart failure, unspecified (principal)

== ENCOUNTER → 2024-03-10 | Outpatient (CLI) | payer MEDICARE ==
[2024-03-10 12:43] LABS: CALCIUM LEVEL 10.4 MG/DL (8.3-10.6); CREATININE FOR GFR 1.64 MG/DL (0.55-1.30); GLOMERULAR FILTRATION RATE 32.1 (>32); POTASSIUM SERUM 4.3 MMOL/L (3.5-5.1)
== END ==
LOC: M WUC 09:41
PROVIDERS: ATTEND Nurse Practitioner Acute Care
DX: I50.9 Heart failure, unspecified (principal)

== ENCOUNTER → 2024-12-14 | Outpatient (CLI) | payer MEDICARE | LOC: M WUC 11:47 | PROVIDERS: ATTEND Nurse Practitioner Family | DX: M19.072 Primary osteoarthritis, left ankle and foot (principal) ==

== ENCOUNTER → 2025-02-08 | Outpatient (REF) | payer MEDICARE ==
[~2025-02-08] MED LIST changes: +AZIT-10 PO; +ELIQ2.5T PO; +FARX1TAB3 PO; +FERR1TAB8 PO; +HYDR50TA46 PO; +PROA1AER2 IN; +SYST1SOL OU
[2025-02-08 18:29] LABS: ALT/SGPT 12.0 U/L (7.0-40); AST/SGOT 19.0 U/L (<34); CALCIUM LEVEL 12.9 MG/DL (8.3-10.6); CARBON DIOXIDE LEVEL 30.0 MMOL/L (20-31); CHLORIDE LEVEL 101.0 MMOL/L (98-107); CHOLESTEROL LEVEL 225.0 MG/DL (<200); CHOLESTEROL RISK RATIO 4.59 (<5); CREATININE FOR GFR 1.87 MG/DL (0.55-1.30); GLOMERULAR FILTRATION RATE 26.7 (>32); LDL CHOLESTEROL 134.2 MG/DL (<100); MAGNESIUM LEVEL 2.7 MG/DL (1.8-2.4); NON-HDL-C 176.0 MG/DL; POTASSIUM SERUM 4.6 MMOL/L (3.5-5.1); SODIUM LEVEL 144.0 MMOL/L (136-145); TRIGLYCERIDES LEVEL 209.0 MG/DL (<150)
== END ==
LOC: M PLALAB 17:02
PROVIDERS: ATTEND Internal Medicine
DX: N18.30 Chronic kidney disease, stage 3 unspecified (principal); F41.9 Anxiety disorder, unspecified; E78.00 Pure hypercholesterolemia, unspecified; N18.4 Chronic kidney disease, stage 4 (severe)

== ENCOUNTER 2025-02-09 14:00 | Inpatient (IN) | payer MEDICARE ==
[~2025-02-09] VITALS: Ht 149.9 cm; Wt 49.0 kg
[~2025-02-09 14:00] MED LIST changes: -AZIT-10 PO; -ELIQ2.5T PO; -FARX1TAB3 PO; -FERR1TAB8 PO; -HYDR50TA46 PO; -PROA1AER2 IN; -SYST1SOL OU
[2025-02-09 15:00] LABS: KETONE, URINE AUTO RFX NEGATIVE (NEGATIVE); NITRITE, URINE AUTO RFX NEGATIVE (NEGATIVE); RBC, URINE AUTO RFX 0 /HPF (0-3); SQUAM EPITHELIAL CELL UR AURFX 0 /HPF (0-6); WBC, URINE AUTO RFX 3 /HPF (0-3)
[2025-02-09 15:02] LABS: BASO # 0.1 10^3/uL (0.0-0.2); BASO % 0.7 % (0.0-1.0); EOS # 0.3 10^3/uL (0.0-0.5); EOS % 4.6 % (0.0-3.0); LYMPH # 1.3 10^3/uL (1.5-5.0); LYMPH % 19.3 % (24.0-44.0); MONO # 1.0 10^3/uL (0.0-0.8); MONO % 14.6 % (2.0-8.0); NEUTROPHILS # 4.2 10^3/uL (1.5-8.5); NEUTROPHILS % 60.7 % (36.0-66.0); PLATELET COUNT, AUTOMATED 326 10^3/uL (150-450)
[2025-02-09 15:14] LABS: INR 1.14
[2025-02-09 15:25] LABS: CALCIUM LEVEL 11.9 MG/DL (8.3-10.6); CARBON DIOXIDE LEVEL 27.0 MMOL/L (20-31); CHLORIDE LEVEL 100.0 MMOL/L (98-107); CREATININE FOR GFR 1.58 MG/DL (0.55-1.30); GLOMERULAR FILTRATION RATE 32.7 (>32); POTASSIUM SERUM 4.1 MMOL/L (3.5-5.1); SODIUM LEVEL 139.0 MMOL/L (136-145)
[2025-02-09 15:26] LABS: LEUKOCYTE ESTERASE UR AUTO RFX TRACE (NEGATIVE)
[2025-02-09 16:09] LABS: PTH INTACT 9.5 PG/ML (18.5-88.0)
[2025-02-09] MEDS: NS (Normal Saline) 0.9% 1,000 ML IV SCH ×2 (17:55→18:15)
[2025-02-09] MEDS ORDERED: SYST1SOL OU (18:28)
[2025-02-09] MEDS ORDERED: HYDR50TA46 PO (18:28)
[2025-02-09] MEDS ORDERED: PROA1AER2 IN (18:29)
[2025-02-09] MEDS ORDERED: AZIT-10 PO (18:30)
[2025-02-09] MEDS ORDERED: FARX1TAB3 PO (18:34)
[2025-02-09] MEDS ORDERED: BUME2TAB3 PO (18:34)
[2025-02-09] MEDS ORDERED: FERR1TAB8 PO (18:34)
[2025-02-09] MEDS ORDERED: HOME MED LIST COMPLETE! XX SCH (18:35)
[2025-02-09] MEDS ORDERED: BISACODYL 10 MG SUPP PR PRN (19:50)
[2025-02-09] MEDS: amLODIPine 10 MG TAB PO SCH (20:04)
[2025-02-09] MEDS: **hydrALAZINE HCL** 25 MG TAB PO SCH (20:04)
[2025-02-09] MEDS: DOCUSATE SODIUM 100 MG CAPSULE PO SCH (20:04)
[2025-02-09] MEDS: SENNOSIDES/DOCUSATE SODIUM 8.6 MG/50MG TAB PO SCH (20:04)
[2025-02-09] MEDS: ACETAMINOPHEN 500 MG TAB PO PRN (21:05)
[2025-02-09 23:30] VITALS: BP 172/83; TEMP 96.8; O2SAT 97
[2025-02-10 00:47] VITALS: BP 130/55
[2025-02-10 01:00] VITALS: O2SAT 98
[2025-02-10] MEDS: APIXABAN 2.5 MG TAB PO SCH (01:09)
[2025-02-10] MEDS: traMADol 50 MG TAB PO PRN (01:10)
[2025-02-10 03:29] VITALS: BP 155/70
[2025-02-10 04:28] LABS: BASO # 0.0 10^3/uL (0.0-0.2); BASO % 0.6 % (0.0-1.0); EOS # 0.4 10^3/uL (0.0-0.5); EOS % 5.3 % (0.0-3.0); LYMPH # 1.3 10^3/uL (1.5-5.0); LYMPH % 20.0 % (24.0-44.0); MONO # 1.2 10^3/uL (0.0-0.8); MONO % 17.9 % (2.0-8.0); NEUTROPHILS # 3.7 10^3/uL (1.5-8.5); NEUTROPHILS % 56.0 % (36.0-66.0); PLATELET COUNT, AUTOMATED 264 10^3/uL (150-450)
[2025-02-10 04:33] VITALS: BP 155/70; TEMP 97.2; O2SAT 95
[2025-02-10 04:57] LABS: CALCIUM LEVEL 11.2 MG/DL (8.3-10.6); CARBON DIOXIDE LEVEL 27.0 MMOL/L (20-31); CHLORIDE LEVEL 107.0 MMOL/L (98-107); CREATININE FOR GFR 1.45 MG/DL (0.55-1.30); GLOMERULAR FILTRATION RATE 36.2 (>32); MAGNESIUM LEVEL 2.1 MG/DL (1.8-2.4); POTASSIUM SERUM 4.1 MMOL/L (3.5-5.1); SODIUM LEVEL 144.0 MMOL/L (136-145)
[2025-02-10] MEDS ORDERED: ALBUTEROL 90 MCG/ACT 8 GM HFA INHALER INH PRN (08:15)
[2025-02-10] MEDS: FERROUS SULFATE 325 MG TAB PO SCH (08:54)
[2025-02-10] MEDS: OMEPRAZOLE 20MG CAP PO SCH (08:54)
[2025-02-10] MEDS: MIRALAX *UNIT DOSE* 17 GM PACKET PO SCH (08:54)
[2025-02-10 12:36] VITALS: BP 153/87; TEMP 97; O2SAT 96
[2025-02-10 20:00] VITALS: BP 150/60; TEMP 97.3; O2SAT 97
[2025-02-10] MEDS: POLYVINYL ALCOHOL OPHTH SOLN 15ML (LIQUITEARS) OU SCH (20:07)
[2025-02-11] VITALS (7 sets, daily range): BP systolic 142–190; BP diastolic 64–80; TEMP 96–97.3; O2SAT 91–98
[2025-02-11 07:15] LABS: BASO # 0.0 10^3/uL (0.0-0.2); BASO % 0.5 % (0.0-1.0); EOS # 0.3 10^3/uL (0.0-0.5); EOS % 4.3 % (0.0-3.0); LYMPH # 1.1 10^3/uL (1.5-5.0); LYMPH % 14.0 % (24.0-44.0); MONO # 1.1 10^3/uL (0.0-0.8); MONO % 13.2 % (2.0-8.0); NEUTROPHILS # 5.4 10^3/uL (1.5-8.5); NEUTROPHILS % 67.7 % (36.0-66.0); PLATELET COUNT, AUTOMATED 257 10^3/uL (150-450)
[2025-02-11 07:40] LABS: CALCIUM LEVEL 10.2 MG/DL (8.3-10.6); CARBON DIOXIDE LEVEL 22.0 MMOL/L (20-31); CHLORIDE LEVEL 109.0 MMOL/L (98-107); CREATININE FOR GFR 1.09 MG/DL (0.55-1.30); GLOMERULAR FILTRATION RATE 51.0 (>32); POTASSIUM SERUM 3.7 MMOL/L (3.5-5.1); SODIUM LEVEL 143.0 MMOL/L (136-145)
[2025-02-11] MEDS: ALBUTEROL SULFATE 2.5 MG/0.5 ML INH CONCENTRATE NEB SOLN NEB SCH (08:21)
[2025-02-11] MEDS: FUROSEMIDE 40 MG/4 ML VIAL IV ONE (08:27)
[2025-02-12 04:52] VITALS: BP 144/58; TEMP 97; O2SAT 93
[2025-02-12 05:28] LABS: T P ELECTROPHORESIS SO 6.3 g/dL (6.1-8.1)
[2025-02-12 07:16] LABS: BASO # 0.0 10^3/uL (0.0-0.2); BASO % 0.7 % (0.0-1.0); EOS # 0.3 10^3/uL (0.0-0.5); EOS % 5.1 % (0.0-3.0); LYMPH # 1.3 10^3/uL (1.5-5.0); LYMPH % 20.7 % (24.0-44.0); MONO # 1.0 10^3/uL (0.0-0.8); MONO % 16.3 % (2.0-8.0); NEUTROPHILS # 3.5 10^3/uL (1.5-8.5); NEUTROPHILS % 57.0 % (36.0-66.0); PLATELET COUNT, AUTOMATED 242 10^3/uL (150-450)
[2025-02-12 07:38] LABS: CALCIUM LEVEL 10.3 MG/DL (8.3-10.6); CARBON DIOXIDE LEVEL 24.0 MMOL/L (20-31); CHLORIDE LEVEL 108.0 MMOL/L (98-107); CREATININE FOR GFR 1.22 MG/DL (0.55-1.30); GLOMERULAR FILTRATION RATE 44.6 (>32); POTASSIUM SERUM 3.4 MMOL/L (3.5-5.1); SODIUM LEVEL 144.0 MMOL/L (136-145)
[2025-02-12] MEDS ORDERED: ISOVUE-370 76% 100 ML VIAL As Ordered ONE (08:39)
[2025-02-12] MEDS: POTASSIUM CHLORIDE 10MEQ SR TABLET PO ONE (09:40)
[2025-02-12 11:52] VITALS: BP 142/66
[2025-02-12 12:00] VITALS: BP 159/84; TEMP 97.2; O2SAT 98
[2025-02-12] MEDS ORDERED: ELIQ2.5T PO (12:44)
[2025-02-12] MEDS ORDERED: AMLO1TAB25 PO (12:44)
[2025-02-12] MEDS ORDERED: PROA1AER2 IN (14:10)
[2025-02-15 08:12] LABS: ALBUMIN SPEP 3.7 g/dL (3.8-4.8); ALPHA-1-GLOBULINS SO 0.4 g/dL (0.2-0.3); ALPHA-2-GLOBULINS SO 0.9 g/dL (0.5-0.9); BETA 2 GLOBULIN 0.3 g/dL (0.2-0.5); BETA-GLOBULIN SO 0.3 g/dL (0.4-0.6); GAMMA GLOBULINS SO 0.6 g/dL (0.8-1.7)
[2025-02-15 13:13] LABS: FREE KAPPA LIGHT CHAINS SERUM 34.7 mg/L (3.3-19.4); FREE LAMBDA LIGHT CHAINS SERUM 23.5 mg/L (5.7-26.3); KAPPA/LAMBDA RATIO SERUM 1.48 (0.26-1.65)
== END 2025-02-12 14:53 | disposition home or self-care (01) | DRG 640 ==
LOC: M ED 14:52 → M ED INP 18:12 → M MSPAV 23:26
PROVIDERS: ADMIT Internal Medicine Nephrology; ATTEND Internal Medicine Nephrology
DX: E83.52 Hypercalcemia (principal); I50.33 Acute on chronic diastolic (congestive) heart failure; I48.20 Chronic atrial fibrillation, unspecified; I13.0 Hypertensive heart and chronic kidney disease with heart failure and stage 1 through stage 4 chronic kidney disease, or unspecified chronic kidney disease; N18.4 Chronic kidney disease, stage 4 (severe); I47.20 Ventricular tachycardia, unspecified; F03.90 Unspecified dementia, unspecified severity, without behavioral disturbance, psychotic disturbance, mood disturbance, and anxiety; E86.0 Dehydration; M35.3 Polymyalgia rheumatica; I27.20 Pulmonary hypertension, unspecified; D64.9 Anemia, unspecified; F41.9 Anxiety disorder, unspecified; M19.90 Unspecified osteoarthritis, unspecified site; I34.0 Nonrheumatic mitral (valve) insufficiency; E78.00 Pure hypercholesterolemia, unspecified; Z79.01 Long term (current) use of anticoagulants; Z79.2 Long term (current) use of antibiotics; Z79.899 Other long term (current) drug therapy; Z88.0 Allergy status to penicillin; Z88.1 Allergy status to other antibiotic agents; Z88.5 Allergy status to narcotic agent; Z88.8 Allergy status to other drugs, medicaments and biological substances; Z95.5 Presence of coronary angioplasty implant and graft

== ENCOUNTER → 2025-03-24 | Outpatient (REF) | payer MEDICARE ==
[~2025-03-24] MED LIST changes: +AZIT-10 PO; +ELIQ2.5T PO; +FARX1TAB3 PO; +FERR1TAB8 PO; +HYDR50TA46 PO; +PROA1AER2 IN; +SYST1SOL OU
[2025-03-27 18:42] LABS: IRON (FE) 28.0 UG/DL (50-170); PERCENT SATURATION 8.3 % (13.2-45.0)
== END ==
LOC: M LAB REF 17:08
PROVIDERS: ATTEND Internal Medicine Nephrology
DX: N18.9 Chronic kidney disease, unspecified (principal); D63.1 Anemia in chronic kidney disease

== ENCOUNTER 2025-05-03 09:34 | Outpatient (CLI) | payer MEDICARE ==
[~2025-05-03] VITALS: Ht 152.4 cm; Wt 45.0 kg
[~2025-05-03 09:34] MED LIST changes: +ALBUTEROL SULFATE 2.5 MG/0.5 ML INH CONCENTRATE NEB SOLN INH PRN; +EPINEPHrine INJ 1 MG/ML 1ML AMP IM PRN; +diphenhydrAMINE 50 MG/ML VIAL IV PRN
[2025-05-03 09:47] VITALS: BP 149/64; O2SAT 99
[2025-05-03] MEDS: IRON SUCROSE 300 MG in NS 250 ML IV ONE (10:00)
[2025-05-03 11:50] VITALS: BP 146/63; O2SAT 98
== END 2025-05-03 11:55 | disposition home or self-care (01) ==
LOC: M INFU 09:34
PROVIDERS: ATTEND Internal Medicine Nephrology
DX: N18.9 Chronic kidney disease, unspecified (principal); D63.1 Anemia in chronic kidney disease; Z88.0 Allergy status to penicillin; Z88.2 Allergy status to sulfonamides; Z88.5 Allergy status to narcotic agent; Z88.8 Allergy status to other drugs, medicaments and biological substances
CPT/HCPCS: 96365; 96366; J1756

== ENCOUNTER 2025-05-10 09:18 | Outpatient (CLI) | payer MEDICARE ==
[~2025-05-10] VITALS: Ht 152.4 cm; Wt 45.0 kg
[2025-05-10] MEDS: IRON SUCROSE 300 MG in NS 250 ML IV ONE (09:59)
[2025-05-10 11:43] VITALS: BP 152/68; O2SAT 98
[2025-05-10 16:14] VITALS: BP 141/67; O2SAT 98
== END 2025-05-10 11:45 | disposition home or self-care (01) ==
LOC: M INFU 09:18
PROVIDERS: ATTEND Internal Medicine Nephrology
DX: N18.9 Chronic kidney disease, unspecified (principal); D63.1 Anemia in chronic kidney disease; Z88.0 Allergy status to penicillin; Z88.8 Allergy status to other drugs, medicaments and biological substances; Z88.2 Allergy status to sulfonamides; Z88.5 Allergy status to narcotic agent
CPT/HCPCS: 96365; 96366; J1756

== ENCOUNTER 2025-05-17 10:21 | Outpatient (CLI) | payer MEDICARE ==
[~2025-05-17] VITALS: Ht 152.4 cm; Wt 45.0 kg
[~2025-05-17 10:21] MED LIST changes: -ALBUTEROL SULFATE 2.5 MG/0.5 ML INH CONCENTRATE NEB SOLN INH PRN; -EPINEPHrine INJ 1 MG/ML 1ML AMP IM PRN; +NS (Normal Saline) 0.9% 1,000 ML IV SCH; -diphenhydrAMINE 50 MG/ML VIAL IV PRN
[2025-05-17 10:35] VITALS: BP 134/63; O2SAT 97
[2025-05-17] MEDS: IRON SUCROSE 300 MG in NS 250 ML OVER 90 MIN. IV ONE (11:12)
[2025-05-17 13:00] VITALS: BP 138/64; O2SAT 97
== END 2025-05-17 13:00 | disposition home or self-care (01) ==
LOC: M INFU 10:21
PROVIDERS: ATTEND Internal Medicine Nephrology
DX: N18.9 Chronic kidney disease, unspecified (principal); D63.1 Anemia in chronic kidney disease; Z88.0 Allergy status to penicillin; Z88.5 Allergy status to narcotic agent; Z88.8 Allergy status to other drugs, medicaments and biological substances
CPT/HCPCS: 96365; 96366; J1756

== ENCOUNTER → 2025-06-05 | Outpatient (REF) | payer MEDICARE ==
[~2025-06-05] MED LIST changes: -NS (Normal Saline) 0.9% 1,000 ML IV SCH
== END ==
LOC: M LAB REF 17:31
PROVIDERS: ATTEND Internal Medicine
DX: R53.1 Weakness (principal)